=== PATIENT | male | born 1990 | race Caucasian/White ===

== ENCOUNTER 2021-01-13 07:33 | Emergency (ER) | payer OTHER ==
[~2021-01-13] VITALS: Ht 182.9 cm; Wt 93.5 kg
[2021-01-13 07:34] VITALS: BP 143/73
--- NOTE | 2021-01-13 08:20 | REP ---
INDICATION: CHEST PAIN COMPARISON: None. TECHNIQUE: Portable AP view of the chest FINDINGS: The mediastinum and cardiac silhouette are within normal limits for portable technique. The lung gongora are clear without acute consolidation, effusion, or pneumothorax. Skeletal structures are intact. IMPRESSION: No acute cardiopulmonary process appreciated. <Electronically signed by Richar Quinonez > 01/13/21 0828
[2021-01-13 09:15] LABS: BASO % 0.4 % (0.0-1.0); EOS # 0.1 10^3/uL (0.0-0.5); HEMOGLOBIN 14.5 g/dl (13.5-17.5); LYMPH # 1.5 10^3/uL (1.5-5.0); LYMPH % 33.2 % (24.0-44.0); MEAN CORPUSCULAR HEMOGLOBIN 31.3 pg (27.0-33.0); MEAN CORPUSCULAR HGB CONC 33.7 g/dl (32.0-36.5); MEAN CORPUSCULAR VOLUME 92.9 fl (80.0-96.0); MONO # 0.4 10^3/uL (0.0-0.8); MONO % 8.5 % (2.0-8.0); NEUTROPHILS # 2.6 10^3/uL (1.5-8.5); NEUTROPHILS % 55.7 % (36.0-66.0); PLATELET COUNT, AUTOMATED 291 10^3/uL (150-450); RED BLOOD COUNT 4.63 10^6/uL (4.30-6.10); WHITE BLOOD COUNT 4.6 10^3/uL (4.0-10.0)
[2021-01-13] MEDS ORDERED: ISOVUE-370 76% 100ML VIAL As Ordered ONE (09:34)
[2021-01-13 09:48] LABS: ALBUMIN 4.1 GM/DL (3.2-5.2); BILIRUBIN,DIRECT 0.2 MG/DL (0.0-0.2); BILIRUBIN,TOTAL 0.6 MG/DL (0.2-1.0); FREE T4 1.21 NG/DL (0.76-1.46); THYROID STIMULATING HORMONE 0.788 uIU/ML (0.358-3.740); TOTAL PROTEIN 7.6 GM/DL (6.4-8.2)
--- NOTE | 2021-01-13 09:59 | REP ---
INDICATION: chest pain COMPARISON: None. TECHNIQUE: Axial contrast enhanced images from the thoracic inlet to the upper abdomen using pulmonary embolus technique with multiplanar re-formations. 75 ml Isovue 370 intravenous contrast material administered without complication. This CT examination was performed using the following dose reduction techniques: Automated exposure control, adjustment of mA and/or kv according to the patient's size, and use of iterative reconstruction technique. FINDINGS: Satisfactory enhancement of the pulmonary vasculature is achieved and no filling defects are identified to suggest pulmonary embolus. Further evaluation of the mediastinum demonstrates normal thoracic aorta, heart and pericardium. The bilateral lung gongora are well aerated and clear without consolidation pleural effusion or pneumothorax. Tracheobronchial tree is patent. No nodule or mass lesion is identified. No adenopathy noted. Surrounding musculoskeletal structures intact IMPRESSION: No evidence for pulmonary embolus. No acute mediastinal or pleural parenchymal process. <Electronically signed by Richar Quinonez > 01/13/21 [id number]
[2021-01-13 10:11] LABS: RSV AMPLIFICATION NEGATIVE (NEGATIVE)
--- NOTE | 2021-01-13 19:48 | ECGEPIP ---
[facility] - ED Test Date: 2021-01-13 Pat Name: TABATHA ROSARIO Department: Room: - Gender: Male [employer] Agent: FADIGAIL : 1990 Requested By: Wellington Prince Order Number: [id number] Reading MD: Tory Scruggs Measurements Intervals [place] Rate: 67 P: 22 DC: 102 QRS: 73 QRSD: 110 T: 51 QT: 412 QTc: 435 Interpretive Statements Sinus rhythm with short DC No prior Electronically Signed on 01-13-2021 19:48:37 EDT by Tory Scruggs
== END 2021-01-13 11:15 | disposition home or self-care (01) ==
LOC: M ED 07:33
DX: R07.9 Chest pain, unspecified (principal); R00.2 Palpitations; F17.210 Nicotine dependence, cigarettes, uncomplicated
CPT/HCPCS: 36415; 71045; 71275; 80047; 80076; 83690; 84439; 84443; 84484; 85025; 87631; 93005; 99284; Q9967

== ENCOUNTER 2022-10-10 01:15 | Emergency (ER) | payer OTHER ==
[~2022-10-10] VITALS: Ht 180.3 cm; Wt 97.5 kg
[2022-10-10 05:29] LABS: GC DNA AMPLIFICATION NEGATIVE (NEGATIVE)
[2022-10-10] MEDS ORDERED: PYRI1TAB5 PO (07:48)
[2022-10-10] MEDS ORDERED: PHENAZOPYRIDINE 100 MG TAB PO ONE (07:50)
[2022-10-10 07:53] VITALS: BP 150/84
== END 2022-10-10 08:02 | disposition home or self-care (01) ==
LOC: M ED 01:15
DX: R30.0 Dysuria (principal)